=== PATIENT | female | born 1960 | race Caucasian/White ===

== ENCOUNTER 2023-08-18 07:15 | Day surgery (SDC) | payer OTHER, SELFPAY ==
[2023-08-18] VITALS (15 sets, daily range): BP systolic 83–101; BP diastolic 33–82; BMI 25.5
[2023-08-18 07:37] LABS: Hematocrit 40.5 % (37.0-47.0); Hemoglobin 13.2 g/dL (12.0-16.0); Mean Corp Hgb Conc. 32.6 g/dL (33.0-37.0); Mean Platelet Volume 11.1 fL (7.4-10.4); Platelet Count 266 10^3/uL (130-400); Red Blood Cell Count 4.55 10^6/uL (4.20-5.40); Red Cell Dist. Width 14.2 % (11.5-14.5); White Blood Cell Count 7.1 10^3/uL (4.8-10.8)
[2023-08-18 07:41] LABS: Blood Urea Nitrogen 22 mg/dl (7-17); Calcium 10.6 mg/dl (8.4-10.2); Carbon Dioxide 30 mmol/L (22-30); Chloride 101 mmol/L (98-107); Glucose 87 mg/dl (70-99); Potassium 4.4 mmol/L (3.5-5.1); Sodium 139 mmol/L (135-145); eGFR > 60.00
[2023-08-18] MEDS: NSS 190 ML IV (08:41)
[2023-08-18] MEDS: LOW STRENGTH ASPIRIN 324 MG PO (08:42)
[2023-08-18] MEDS: NSS 1000 IV (11:43)
--- NOTE | 2023-08-18 15:05 | ITS.CL.ANGIO ---
On Site Manager - Angioplasty
Angioplasty
Procedure Report:
LEFT HEART CATHETERIZATION
Date of Procedure: August 18, 2023
Procedures performed:
1: Coronary angiography
2: Left ventricular hemodynamic assessment
3: Percutaneous coronary intervention of the left anterior descending artery with placement of a 2.5 x 12 mm Xience drug-eluting stent
4: Percutaneous coronary intervention of the distal right coronary artery with placement of a 2.75 x 28 mm Xience drug-eluting stent postdilated to high-pressure with a 3.0 mm diameter noncompliant balloon
5: Percutaneous coronary intervention of the mid right coronary artery with 2 overlapping stents (3.0 x 28 mm Xience distally overlapping with a 3.25 x 28 mm Xience proximally) postdilated distally with a 3.0 mm balloon and proximally with a 3.5 mm
noncompliant balloon at high pressure
Primary Care Physician: Dr. Bear Ames
Primary Bakery Worker: Myself
INDICATION: The patient is a 62-year-old woman with a past medical history significant for an ischemic cardiomyopathy status post extensive LAD stenting in 2018 in the setting of a late presentation STEMI with known severe diffuse residual
obstructive coronary disease not amenable to surgery or PCI at that time, status post ICD placement, persistent atrial fibrillation on Eliquis, rheumatoid arthritis, and spinal stenosis who is referred for coronary angiography. She has no typical
angina but is fairly limited due to her orthopedic and rheumatologic issues. Her ejection fraction is dropping with serial echoes from as high as 40 to 45% in 2021 now 25 to 30% on May 19. Despite this she has not had decompensated congestive
heart failure. She is on excellent medical therapy. [facility].
ACCESS: The patient was prepped and draped in usual sterile fashion. A 6 Czech sheath was placed in the right common femoral artery using the Seldinger over the wire technique. Attempts to cannulate the right radial artery were unsuccessful
despite ultrasound guidance.
HEMODYNAMIC FINDINGS (mmHg):
LV(s/d,EDP): 88/15, 17
Ao(s/d,m): 88/51, 66
ANGIOGRAPHIC FINDINGS:
Single-plane Left Ventriculography in DE JESUS Projection: Not done.
Coronary Angiography:
Dominance: Right
Left Main: Medium caliber with mild luminal irregularity.
Left Anterior Descending: The left anterior descending artery is a medium caliber vessel that gives rise to several small caliber diagonal branches. The first diagonal branch is proximally occluded and fills distally via left to left collaterals.
The second diagonal branch is jailed by the widely patent mid LAD stent and has severe 90% complex proximal disease with AUDRA-3 distal flow. The third and fourth diagonal branches are widely patent. The mid/distal overlapping stents are widely
patent with a focal area of 70% in-stent restenosis at the most distal stent. The apical LAD has distal smooth 80% stenosis with normal flow. The apical LAD provides collaterals to what appears to be a small caliber but long high OM or ramus
branch. This was not visualized during her index OR procedure in 2018.
Left Circumflex: The left circumflex is a relatively small nondominant system that appears to give rise to only 2 small obtuse marginal branches. This vascular distribution fills much better on this study than it did in 2018 when she was on
pressors and in borderline shock. The first obtuse marginal branch appears to have a very high takeoff and is proximally occluded and fills via apical LAD collaterals. The origin of this vessel is unclear with flush occlusion. There are 2 distal
OM's present that were noted on prior angiography in 2018. The first obtuse marginal branch is occluded in the midportion of the distal vessels fill via left to left collaterals. Again this was not appreciated in 2018 when the vessels were not as
well filled.
Right Coronary: The right coronary artery is a medium to large caliber vessel that was previously occluded in the midportion in 2018. There is now evidence of antegrade flow through a 90% long lesion which may be a bridging collateral. The distal
vessel has competitive flow from left to right collaterals. The distal right coronary artery has a smooth 80% stenosis before the bifurcation. The distal vessels are not well-visualized due to competitive flow from the left.
Percutaneous Coronary Intervention (PCI): In light of her dropping ejection fraction and severe diffuse small vessel disease without surgical options, I felt that I should revascularize what ever I could safely treat. I chose to focus on the focal
in-stent restenotic lesion in the LAD first. The patient was pretreated with aspirin. Unfractionated heparin was given. A loading dose of clopidogrel 600 mg was given on the table at the end of the procedure. A 6 Czech XB 3.0 guiding catheter
was used to engage the left main. Hi-Torque floppy wire was easily advanced down the LAD. Primary stenting with a 2.5 x 12 mm Xience drug-eluting stent was performed. The stent was postdilated with a 2.5 mm diameter noncompliant balloon at high
pressure. Care was taken to stay within the stented margins.
FINAL RESULT: 0% in-stent residual stenosis with an excellent angiographic result AUDRA-3 flow in all distal vessels.
Percutaneous coronary invention of the right coronary artery: I then turned my attention to the right coronary artery. A 6 Czech AL 0.75 guide was used to engage. Hi-Torque floppy wire was easily advanced across both high-grade lesions into the
distal vessel. A 2.0 x 20 mm balloon was used to restore antegrade flow. Next a 2.75 x 28 mm Xience drug-eluting stent was deployed at the distal lesion. Next a 3.0 x 28 mm Xience drug-eluting stent was deployed at the more proximal lesion. A
second overlapping 3.25 x 28 mm Xience drug-eluting stent was then placed more proximally. The distal stent was postdilated with a 3.0 mm diameter noncompliant balloon and distal to proximal fashion taking care to stay within the stented margins.
The more distal mid RCA stent was postdilated at high pressure with a 3.0 mm diameter noncompliant balloon. The overlap and proximal stent was postdilated with a 3.5 mm diameter noncompliant balloon at high pressure.
FINAL RESULT: 0% in-stent residual stenosis with an excellent angiographic result. The right coronary artery gives rise to a medium caliber posterior descending artery and posterior left ventricular branch system. There is smooth 30% proximal
disease in the posterior descending artery. All vessels have AUDRA-3 flow.
Fluoroscopy Time (min): 18
Radiation Dose (mGy): 997
DAP (Gy.cm2): 57
Closure device: 6 Czech Angio-Seal to right common femoral artery. No acute complications.
Complications: None.
ASSESSMENT:
1: Successful PCI of the left anterior descending artery and right coronary artery with placement of drug-eluting stents as described above.
2: Elevated left ventricular filling pressures.
3: Residual severe small vessel disease in the diagonal branches and entire distal circumflex system. This is not amenable to surgical or percutaneous revascularization. This is unchanged from prior angiography and actually much better visualized
today than in 2018 when she was very sick and on vasopressors.
CONCLUSIONS and RECOMMENDATIONS:
1: Routine post PCI medical therapy and monitoring. Will plan to give aspirin and clopidogrel for a week and then stop aspirin and continue Eliquis 5 mg twice daily with clopidogrel 75 mg daily after that.
2: Continue aggressive medical therapy for a ischemic cardiomyopathy with close clinical follow-up.
Stephen Peoples M.D.
Copy to: Dr. Bear Ames
[2023-08-18 15:31] LABS: ACT-LR - POC > 397 Seconds (116-155)
[2023-08-18 15:31] LABS: ACT-LR - POC > 397 Seconds (116-155)
[2023-08-18 15:31] LABS: ACT-LR - POC > 397 Seconds (116-155)
--- NOTE | 2023-08-18 16:08 | PTCARENOTE ---
Received pt post cath, via stretcher. VSS. Right radial site w/ tegadern clean and intact. Right groin site w/ tegadern and 2x2 gauze intact. Will monitor.
--- NOTE | 2023-08-18 16:08 | CM ---
Chart reviewed. Patient is independent of ADLS, lives with her and son in a [address], [facility], ambulates with a SPC. Plan is for the patient to return home. CM to follow
[2023-08-18] MEDS: LASIX 20 MG PO (18:06)
[2023-08-18] MEDS: LIPITOR 80 MG PO (18:07)
[2023-08-18] MEDS: TOPROL XL 25 MG PO (18:07)
--- NOTE | 2023-08-18 18:12 | PTCARENOTE ---
Pt notified RN of left peripheral eye 'flickering'. Pt states that this symptom lasted for about 30 min. Pt notified the RN after this symptom resolved. Pt sitting oob and eating dinner at the time. Pt denied any other symptoms. VSS. Will monitor.
[2023-08-18] MEDS: ENTRESTO 24 MG/26 MG 1 TAB PO (22:18)
[2023-08-19 04:04] VITALS: BP 90/62
[2023-08-19 04:19] LABS: Hematocrit 35.8 % (37.0-47.0); Hemoglobin 11.8 g/dL (12.0-16.0); Mean Corpuscular Hgb 29.5 pg (27.0-31.0); Mean Corpuscular Volume 89.5 fL (81.0-99.0); Mean Platelet Volume 10.7 fL (7.4-10.4); Platelet Count 209 10^3/uL (130-400); White Blood Cell Count 5.7 10^3/uL (4.8-10.8)
[2023-08-19 04:36] VITALS: BMI 25.5
[2023-08-19 05:04] LABS: Blood Urea Nitrogen 21 mg/dl (7-17); Carbon Dioxide 22 mmol/L (22-30); Chloride 106 mmol/L (98-107); Estimated Creatinine Clearance 64 ml/min; Glucose 88 mg/dl (70-99); HDL Cholesterol 52 mg/dl; LDL Cholesterol, Calculated 23 mg/dl; Sodium 136 mmol/L (135-145); Total Cholesterol 89 mg/dl (50-199); Triglyceride 74 mg/dl (10-149); Very Low Density Lipoprotein 14 mg/dl (0-30); eGFR > 60.00
[2023-08-19 07:05] VITALS: BP 106/66
[2023-08-19] MEDS: PROTONIX 40 MG PO (08:23)
[2023-08-19] MEDS: PLAVIX 75 MG PO (08:24)
[2023-08-19] MEDS: ZETIA 10 MG PO (08:24)
[2023-08-19] MEDS: ENTRESTO 24 MG/26 MG 1 TAB PO (08:24)
[2023-08-19] MEDS: JARDIANCE 10 MG PO (08:24)
--- NOTE | 2023-08-19 08:51 | W.PN.CARDCBS ---
Addendum entered and electronically signed by Diane Giang DO 08/19/23 12:19:
I saw and examined the patient.
The Plate Printer's note was reviewed and I agree with the note.
Comment: Patient seen and examined with [facility] nurse practitioner. Patient is feeling well and denies chest pain or pressure, shortness of breath or lightheadedness. Ambulating around room without difficulty.
General: No acute distress, AAOX3
Heart: Regular, Negative S3 positive S1/S2; no murmur. + device
Lungs: CTA b/l, negative wheezes/rales/rhonchi
Abd: Positive BS, NT/ND, neg rebound/rigidity/guarding
Ext: No edema. Right groin site intact without hematoma or significant ecchymosis. no bruit
Neuro: nonfocal
Plan:
Patient is feeling well following cardiac catheterization and anxious to return home
Telemetry sinus rhythm/sinus bradycardia without arrhythmias
DAPT ASA/Plavix for 1 week then stop ASA
Will hold Eliquis until Wednesday evening, after groin check with ATC
LDL 23 continue atorvastatin 80mg, zetia 10
HF continue Toprol, Jardiance, spironolactone, Entresto
Will need f/u ECHO in 3-6 mo after revascularization to reassess EF
cardiac rehab c/s
activity restrictions reviewed
groin check apt wed am
f/u Dr. Peoples 2-4 weeks
home today
Original Note:
Today's Communication / Plan
-
post MV PCI
triples for 1 week, resume Eliquis wednesday gisela
continue GDMT for HF
Impression / Plan
-
Primary Care Physician: Dr. Bear Ames
Primary Exercise Planner: Livan Peoples MD
62-year-old woman with a past medical history significant for an ischemic cardiomyopathy status post extensive LAD stenting in 2018 in the setting of a late presentation STEMI with known severe diffuse residual obstructive coronary disease not
amenable to surgery or PCI at that time, status post ICD placement, persistent atrial fibrillation on Eliquis, rheumatoid arthritis, and spinal stenosis who is referred for coronary angiography. She has no typical angina but is fairly limited due
to her orthopedic and rheumatologic issues. Her ejection fraction is dropping with serial echoes from as high as 40 to 45% in 2021 now 25 to 30% on May 19. Despite this she has not had decompensated congestive heart failure. She is on
excellent medical therapy. Eliquis was held for the procedure.
Impression:
CAD/TX prior PCI LAD 2017
Ischemic cardiomyopahty EF 25-30%
post PCI LAD x 1, RCA x 2 MIREYA 08/18/23
prior ICD placement
HTN
HLD
persistent Afib on Eliquis
RA
Procedures performed:
1: Coronary angiography
2: Left ventricular hemodynamic assessment
3: Percutaneous coronary intervention of the left anterior descending artery with placement of a 2.5 x 12 mm Xience drug-eluting stent
4: Percutaneous coronary intervention of the distal right coronary artery with placement of a 2.75 x 28 mm Xience drug-eluting stent postdilated to high-pressure with a 3.0 mm diameter noncompliant balloon
5: Percutaneous coronary intervention of the mid right coronary artery with 2 overlapping stents (3.0 x 28 mm Xience distally overlapping with a 3.25 x 28 mm Xience proximally) postdilated distally with a 3.0 mm balloon and proximally with a 3.5 mm
noncompliant balloon at high pressure
Plan:
post PCI no cp, feels good
tele SB, groin stable
DAPT ASA/Plavix for 1 week then stop ASA
Will hold Eliquis until Wednesday evening, after groin check
LDL 23 continue atorvastatin 80mg, zetia 10
HF continue Toprol, Jardiance, spironolactone, Entresto
Will need f/u ECHO in 3-6 mo after revascularization to reassess EF
cardiac rehab c/s
activity restrictions reviewed
groin check apt fri am
f/u Dr. Peoples 2-4 weeks
home today
Progress Note - Exercise Planner
Subjective
Date of Service: August 19, 2023
no cp, sob
Objective
Labs:
08/19/23 04:03
08/19/23 04:03
Labs
Hgb 11.8 g/dL (12.0-16.0) L 08/19/23 04:03
Hct 35.8 % (37.0-47.0) L 08/19/23 04:03
Plt Count 209 10^3/uL (130-400) D 08/19/23 04:03
Sodium 136 mmol/L (135-145) 08/19/23 04:03
Potassium 4.0 mmol/L (3.5-5.1) 08/19/23 04:03
BUN 21 mg/dl (7-17) H 08/19/23 04:03
Creatinine 0.7 mg/dL (0.6-1.0) 08/19/23 04:03
Glucose 88 mg/dl (70-99) 08/19/23 04:03
Vital Signs and I&O:
Vital Signs
Temp Pulse Resp BP Pulse Ox
97.6 F 85 20 106/66 91
08/19/23 07:03 08/19/23 07:30 08/19/23 07:03 08/19/23 07:05 08/19/23 07:05
Vital Signs
Temp Pulse Resp BP Pulse Ox
97.6 F 85 20 106/66 91
08/19/23 07:03 08/19/23 07:30 08/19/23 07:03 08/19/23 07:05 08/19/23 07:05
Intake & Output
08/17/23 08/18/23 08/19/23 08/20/23
06:59 06:59 06:59 06:59
Intake Total 1330 / 1330
Balance 1329
Physical Exam
Physical Exam
NAD, AOx3
S1, S2, RRR
CTAB, non labored, no wheeze
SNTND Bsx4
R fem site c/d/i no HT, soft
[2023-08-19] MEDS: ALDACTONE 12.5 MG PO (10:03)
--- NOTE | 2023-08-19 11:16 | PTCARENOTE ---
Patient seen this morning by cardiology and is ok for discharge. Seen by cardiac rehab prior to discharge. Dressing right groin is dry and intact, tegaderm in place right wrist. Patient denies any chest pain or sob. Reviewed discharge instructions
with the patient and she states her understanding. Patient discharged home with her .
--- NOTE | 2023-08-19 13:37 | W.DS.TRANS ---
DC Summary - Locks Tender
-
Discharge Instructions:
Sleep Apnea Risk Low
Discharge Diagnosis/Procedures Angioplasty with stent to LAD x1 and RCA x3
Diet Low Cholesterol,2 Gram Sodium,Restrict fluids to
48 oz
Driving Restrictions No driving for 24 hours
Other Services Cardiac Rehab
Specialty Instructions Weigh Daily
Instructions:
Stand-Alone Forms: DC Instructions- Cath/EP Lab
Changes to Home Medications: Yes
Discharge Medications:
DC Medications w/original date entered in [employer]
apixaban 5 mg tablet (Eliquis) 5 mg PO BID 08/18/23
atorvastatin 80 mg tablet 80 mg PO QPM 08/18/23
empagliflozin 10 mg tablet (Jardiance) 10 mg PO DAILY 08/18/23
ezetimibe 10 mg tablet 10 mg PO DAILY 08/18/23
fexofenadine 60 mg tablet 120 mg PO DAILY 08/18/23
furosemide 20 mg tablet (Lasix) 20 mg PO QPM 08/18/23
leflunomide 10 mg tablet 10 mg PO DAILY 08/18/23
metoprolol succinate 25 mg capsule sprinkle, ext. release 24 hr 25 mg PO QPM 08/18/23
pantoprazole 40 mg tablet,delayed release 40 mg PO DAILY 08/18/23
sacubitril 24 mg-valsartan 26 mg tablet (Entresto) 1 tab PO BID 08/18/23
spironolactone 25 mg tablet 12.5 mg PO DAILY 08/18/23
teriparatide 20 mcg/dose (600 mcg/2.4 mL) subcutaneous pen injector 20 mcg SC DAILY 08/18/23
aspirin 81 mg chewable tablet 81 mg PO DAILY #1 tab 08/19/23
clopidogrel 75 mg tablet 75 mg PO DAILY #90 tabs 08/19/23
Home Medication Changes
new to plavix, ASA for 1 week
Pending Results: No
== END 2023-08-19 11:26 | disposition home or self-care (01) ==
LOC: CATH 07:15
PROVIDERS: Nurse Practitioner Adult Health; ATTENDING PHYSICIAN Internal Medicine Interventional Cardiology; FAMILY PHYSICIAN Family Medicine; PRIMARYCARE PHYSICIAN Family Medicine
DX: I25.10 Atherosclerotic heart disease of native coronary artery without angina pectoris (principal); Z95.5 Presence of coronary angioplasty implant and graft; Z95.810 Presence of automatic (implantable) cardiac defibrillator; I11.0 Hypertensive heart disease with heart failure; E78.5 Hyperlipidemia, unspecified; Z79.01 Long term (current) use of anticoagulants; I48.19 Other persistent atrial fibrillation; M06.9 Rheumatoid arthritis, unspecified; I25.5 Ischemic cardiomyopathy; I25.2 Old myocardial infarction; M48.00 Spinal stenosis, site unspecified; I73.9 Peripheral vascular disease, unspecified; Z79.82 Long term (current) use of aspirin; Z79.84 Long term (current) use of oral hypoglycemic drugs; Z79.899 Other long term (current) drug therapy
CPT/HCPCS: C9600; 80048; 80061; 85027; 85347; 93005; 93458; C1725; C1760; C1769; C1874; C1887; C1894; C9601; J0153; Q9967

== ENCOUNTER 2024-09-26 06:02 | Inpatient (IN) | payer OTHER, MEDICARE, SELFPAY ==
[2024-09-13 11:31] LABS: Hematocrit 41.4 % (37.0-47.0); Hemoglobin 13.2 g/dL (12.0-16.0); Mean Corp Hgb Conc. 31.9 g/dL (33.0-37.0); Mean Corpuscular Volume 94.3 fL (81.0-99.0); Platelet Count 295 10^3/uL (130-400); Red Cell Dist. Width 14.0 % (11.5-14.5)
[2024-09-13 11:49] LABS: Glycohemoglobin (HgbA1c) 5.7 % (4.0-5.6)
[2024-09-13 11:56] LABS: ALT (SGPT) 21 U/L (0-35); AST (SGOT) 40 U/L (14-36); Albumin 4.1 g/dl (3.5-5.0); Alkaline Phosphatase 65 U/L (38-126); Blood Urea Nitrogen 23 mg/dl (7-17); Calcium 9.9 mg/dl (8.4-10.2); Carbon Dioxide 29 mmol/L (22-30); Chloride 105 mmol/L (98-107); Glucose 97 mg/dl (70-99); Potassium 4.4 mmol/L (3.5-5.1); Sodium 140 mmol/L (135-145); Total Protein 6.7 g/dl (6.3-8.2); eGFR > 60.00
[2024-09-13 14:01] VITALS: BMI 24.0
[2024-09-13 14:29] VITALS: BMI 24.0
--- NOTE | 2024-09-14 12:28 | CM ---
CM reviewed medical records. CM spoke with patient via live telephone. Patient confirmed demographics. Patient lives independently with . Patient does not have a history of VN, SNF. Patient is 'working on' getting her required DME. Patient
has an outpatient PT facility arranged with [facility] in [place].
Patient is active with her PCP. Patient has medication coverage.
Patient had questions regarding her labs and wanted to have the ortho PA call her with feedback. CM TT'd ortho PA with patient's questions.
PLAN: Home with outpatient PT.
[2024-09-26] VITALS (18 sets, daily range): BP systolic 80–102; BP diastolic 42–63; PULSE 60; O2SAT 95–97; BMI 24.0; BMI 24.8
[2024-09-26] MEDS: NORMOSOL-R/PLASMALYTE-A 1000 IV ×2 (06:29→12:50)
[2024-09-26] MEDS: TYLENOL 650 MG PO ×3 (06:29→17:26)
[2024-09-26] MEDS: CELEBREX 200 MG PO (06:29)
--- NOTE | 2024-09-26 08:56 | OR.RPT ---
Operative Report
Operative Report
Orthopaedic Surgery Operative Note
DATE OF OPERATION: 09/26/2024
PREOPERATIVE DIAGNOSES: Osteoarthritis, right hip
POSTOPERATIVE DIAGNOSES: Same
OPERATION PERFORMED: Right total hip arthroplasty.
SURGEON: Javier Hastings MD
FLARE MAKER: Bhaskar Mays PA-C who assisted with patient positioning and retraction
ANESTHESIA: Spinal
COMPLICATIONS: None.
ESTIMATED BLOOD LOSS: 50 mL.
DRAINS: None
SPECIMEN: None
FINDINGS: Advanced articular cartilage wear on the femoral head and acetabulum.
IMPLANTS:
Biomet G7 Acetabular Shell, cluster hole, size 54
Biomet G7 Highly Crosslinked PE Liner, neutral
Moira Acetabular bone screw, 6.5mm x2
Moira M/L Taper femoral stem, size 10 with reduced neck length and standard offset
Biolox Ceramic Head, size 40mm -3.5
INDICATIONS: The patient presented to my office with debilitating right hip pain due to osteoarthritis. We reviewed the natural history of this problem, as well as the risks, benefits, and alternatives of various treatment options. The patient
exhausted all nonoperative treatment options and wished to proceed with hip replacement surgery. The patient understood the risks which included, but were not limited to, bleeding, infection, failure to relieve pain, more pain than preop, damage to
blood vessels and nerves, need for reoperation, mechanical failure of the implants, wound healing problems, stiffness, instability, blood clot, pulmonary embolism, myocardial infarction, pneumonia, arrhythmia, CVA, and . The patient accepted
these risks and wished to proceed. All questions were answered, and informed consent was obtained.
PROCEDURE IN DETAIL: The patient was identified in the preoperative holding area. The right hip was identified as the operative site. The patient was taken in the operating room and transferred to the operative table. Spinal anesthesia was
performed. IV antibiotics and tranexamic acid were administered. The patient was placed in the lateral position with Stulberg hip positioners. Axillary roll was placed. The down leg was well padded. All bony prominences were well padded. The
operative limb was prepped and draped in the usual sterile fashion.
Time out was performed. A posterolateral approach to the hip was used. The skin incision was centered over the greater trochanter. This was taken down sharply through subcutaneous tissues. Meticulous hemostasis was achieved throughout the case with
electrocautery. We split the fascia leif in line with skin incision. I split the gluteus emerson bluntly. We cauterized all crossing vessels as we split it. I palpated the sciatic nerve and made sure it was well posterior in the operative field. It
was protected throughout the case.
I performed a partial bursectomy to identify the short external rotators. The gluteus medius and minimus were identified and retracted anteriorly. I incised the piriformis tendon and conjoint tendon at their insertions. These were tagged for later
repair. I then performed a trapezoidal capsulotomy. The edges were tagged for later repair. I referenced the cut edge of the capsular flap to 2 fixed points on the greater trochanter for assistance with recreation of limb length and offset. I then
dislocated the hip posteriorly. I performed a femoral neck osteotomy approximately 10 mm above the lesser trochanter, as per preoperative templating. The femoral head measured 50 mm in outer diameter. The distance between neck cut and the center of
femoral head was 30. I placed a curve hohmann retractor over the anterior lip of the acetabulum between the labrum and the anterior hip capsule. A second retractor was placed inferiorly just distal to the transverse acetabular ligament.
Circumferential view of the acetabulum was achieved. I incised the labrum and pulvinar with electrocautery. I started with a 49 mm reamer and reamed down to the medial wall. I then sequentially reamed up to a 53mm reamer. This gave a nice bed of
bleeding bone with excellent column support anteriorly and posteriorly. There was some superior migration of the head in the acetabulum leaving a small shelf of pseudoacetabulum. I impacted the acetabular shell in approximately 40 degrees of
abduction and 20 degrees of anteversion. I matched the anteversion of the transverse acetabular ligament. I also made sure that the anterior rim of the socket was not proud of the anterior wall to minimize the chance of iliopsoas tendinitis. I
confirmed the cup was well-seated. I placed 2 ileal screws in the posterior superior quadrant. I then impacted a neutral liner and confirmed it was well seated with the locking mechanism.
On the femoral side, I use a box osteotome to open the proximal starting point. I found the canal with a Charnley awl and a lateralizing reamer. I then used the Moira M/L taper broaches sequentially to prepare the femoral canal. The size 10 came to
a stop at the desired level and had excellent axial and rotational stability. We trialed with a trial ball head. The hip was taken through a complete range of motion. It was noted to be stable in extension without impingement. It was stable in the
position of sleep and in flexion with internal rotation. The limb length and offset were checked compared to the capsular flap and was appropriate. The measured length between the neck cut and center of the trial femoral head was 35mm.
I removed the trials. I impacted the femoral implant to match the confederated goshute version. It had excellent axial and rotational stability. Trial ball head was placed, and I reduced the hip and took the hip through range of motion. There was no impingement
in external rotation and extension. Position of sleep was stable. At 90 degrees of flexion and slight adduction, the hip could be internally rotated to 90 degrees with no subluxation. I palpated the sciatic nerve, which was tension free and
unharmed. Based on our capsular flap measurement, we had restored the offset and leg length. The trial ball head was removed, and the final ball head was impacted onto a clean and dry Navarro taper. The hip was reduced.
A dilute betadine soak was performed for approximately 3 minutes, and then the hip was copiously irrigated. I repaired the capsule, piraformis, and conjoint tendon with #2 Ethibond to drill holes in the greater trochanter. Local anesthetic was
injected. The fascia leif was closed with #1 PDS in running fashion. The subcutaneous tissues were closed with 2-0 PDS in running fashion. The skin was reapproximated with 3-0 Monocryl subcuticular suture. I placed a Prineo dressing followed by a
Mepilex Ag dressing. The patient awoke from anesthesia without difficulty. Sponge and instrument counts were correct x2 at the end of the case.
I was present and participated in the entire procedure. The patient was sent to the recovery room in stable condition.
Tanmay Hastings MD
[2024-09-26] MEDS: TUMS CHEWABLE TABLET 400 MG PO (09:37)
--- NOTE | 2024-09-26 10:18 | W.PN.UPDATE ---
Update Note
Progress Note Update
R hip OA s/p R TD w/ Dr Hastings 09/26/24
DVT prophylaxis - Eliquis at modified dosing and b/l venous foot pumps
- Home dosing of Eliquis to be resumed POD 3 if hemodynamically stable
Hypertension with recent hypotension - + parameters - monitor BP
- Gentle IVF to prevent significant hypotension
- Midodrine for SBP <125
- Minimize opioids as able
- TEDS
CAD/STEMI, status post PCI with mid-distal LAD stents, 2017, and PCI with LAD and mid to distal RCA stents 07/2023
PAF, pharmacological therapy with Metoprolol Succinate, oral anticoagulation with Eliquis
Ventricular tachycardia, status post ICD implant 2017
- Monitor on tele
- Continue BB, ASA
- Eliquis as stated above
Ischemic cardiomyopathy, reduced ejection fraction - gentle IVF
- Resume home meds but w/ added SBP parameters to avoid significant hypotension
- Daily weight, I&Os
- Low sodium diet
GERD - continue PPI therapy
Peripheral neuropathy of right lower extremity - add Gabapentin
- Consider Lyrica if Gabapentin ineffective
Mildly elevated transaminase - reduce max dose of Tylenol daily
HLD
Multilevel degenerative disc disease
Lumbar stenosis
Scoliosis
Rheumatoid arthritis, on Leflunomide
Thyroid nodule
Basal cell carcinoma, back, status post excision
Osteoporosis
Prediabetes, A1c 5.7
[2024-09-26] MEDS: ULTRAM 50 MG PO (11:48)
--- NOTE | 2024-09-26 13:09 | PTCARENOTE ---
Tubing down Jardiance and Leflunomide to pharmacy to be ordered and tagged to administer if appropriate. [facility] med list is completed. Surgeon and pharmacist made aware through tiger text
[2024-09-26] MEDS: NEURONTIN PO ×2 (13:15→15:25)
[2024-09-26] MEDS: PROTONIX 40 MG PO (13:41)
[2024-09-26] MEDS: NON-FORMULARY ITEM PO (13:43)
[2024-09-26] MEDS: ANCEF 5 IV ×2 (15:26→23:00)
[2024-09-26] MEDS: LIPITOR 80 MG PO (17:30)
[2024-09-26] MEDS: ZETIA 10 MG PO (17:31)
[2024-09-26] MEDS: SENOKOT 17.2 MG PO (19:12)
[2024-09-26] MEDS: DECADRON 4 MG PO (19:13)
[2024-09-26] MEDS: COLACE 100 MG PO (19:13)
[2024-09-26] MEDS: ELIQUIS 2.5 MG PO (19:13)
[2024-09-26] MEDS: BACTROBAN 2% OINTMENT 1 APPLIC NASAL (20:59)
[2024-09-26] MEDS: NEURONTIN 200 MG PO (21:00)
[2024-09-26] MEDS: ROXICODONE 5 MG PO (21:39)
[2024-09-26] MEDS: TYLENOL PO (23:00)
[2024-09-27] MEDS: ROXICODONE 10 MG PO (01:53)
[2024-09-27 03:52] VITALS: BP 89/54
[2024-09-27 03:53] VITALS: BMI 24.9
[2024-09-27] MEDS: TYLENOL PO (05:26)
[2024-09-27 06:00] VITALS: BMI 24.9
[2024-09-27 07:35] VITALS: BP 102/54
[2024-09-27] MEDS: BACTROBAN 2% OINTMENT 1 APPLIC NASAL (08:24)
[2024-09-27] MEDS: DECADRON 4 MG PO (08:25)
[2024-09-27] MEDS: NEURONTIN 200 MG PO (08:25)
[2024-09-27] MEDS: COLACE 100 MG PO (08:26)
[2024-09-27] MEDS: PROTONIX 40 MG PO (08:26)
[2024-09-27] MEDS: ELIQUIS 2.5 MG PO (08:26)
[2024-09-27] MEDS: VITAMIN D3 (cholecalciferol) 100 MCG PO (08:26)
[2024-09-27] MEDS: SENOKOT 17.2 MG PO (08:26)
[2024-09-27] MEDS: NON-FORMULARY ITEM 20 MG PO (08:27)
[2024-09-27] MEDS: NON-FORMULARY ITEM 10 MG PO (08:28)
--- NOTE | 2024-09-27 09:21 | W.PN.ORTHO ---
Today's Communication / Plan
-
Await PT and OT recs.
D/c later today if remaining clinically stable.
Assessment
.
Distal Motor Intact: Yes
Dressing:
Clean, dry and intact.
Assessment:
R hip OA s/p Phuc APPIAH w/ Dr Hastings 09/26/24
DVT prophylaxis - Eliquis at modified dosing and b/l venous foot pumps
- Home dosing of Eliquis to be resumed POD 3 since hemodynamically stable
Hypertension with recent hypotension - + parameters - BPs overall stable for patient
- s/p gentle IVF to prevent significant hypotension
- Midodrine for SBP <125 -> d/c as of this morning.
- Minimize opioids as able
- TEDS
CAD/STEMI, status post PCI with mid-distal LAD stents, 2017, and PCI with LAD and mid to distal RCA stents 07/2023
PAF, pharmacological therapy with Metoprolol Succinate, oral anticoagulation with Eliquis
Ventricular tachycardia, status post ICD implant 2017
- Rhythm stable on tele
- Continue BB, ASA
- Eliquis as stated above
Ischemic cardiomyopathy, reduced ejection fraction - s/p gentle IVF
- Resumed home meds but w/ added SBP parameters to avoid significant hypotension
- Daily weight, I&Os stable
- Low sodium diet
GERD - continue PPI therapy
Peripheral neuropathy of right lower extremity - added Gabapentin -> will d/c w/ HS dose
- Consider Lyrica if Gabapentin ineffective
Mildly elevated transaminase - reduced max dose of Tylenol daily
HLD
Multilevel degenerative disc disease
Lumbar stenosis
Scoliosis
Rheumatoid arthritis, on Leflunomide
Thyroid nodule
Basal cell carcinoma, back, status post excision
Osteoporosis
Prediabetes, A1c 5.7
Plan
.
Surgery / Date: R hip OA s/p Phuc APPIAH w/ Dr Hastings 09/26/24
DVT Prophylaxis: Other (Eliquis)
Activity:
Out of bed.
PT/OT
Discharge Plan: Home w/ Outpatient PT
Subjective
.
.:
Patient resting comfortably in her chair.
R hip pain overall well controlled w/ minimal pain meds.
Denies any acute complaints.
Eager for potential d/c today.
Vital Signs and Labs
.
Vital Signs and Labs:
Lab Results
09/13/24 10:39
09/13/24 10:39
Temp Pulse Resp BP Pulse Ox
97.4 F 64 14 102/54 95
09/27/24 07:35 09/27/24 07:35 09/27/24 07:35 09/27/24 08:25 09/27/24 07:35
Physical Exam
-
HEENT: No pallor, cyanosis, or jaundice. Throat clear.
NECK: Supple. No JVD.
RESPIRATORY: Lungs clear to auscultation.
CVS: S1, S2 normal. RRR.�
ABDOMEN: Soft, non-tender. No distension.
EXTREMITIES: Strength equal, no calf pain with palpation/dorsiflexion. Calves soft.
WEIGHT AND BALANCE CONTROL AGENT: AOx3. No focal deficits. eyelet machine operator grossly intact
[2024-09-27 09:29] VITALS: BP 107/62
--- NOTE | 2024-09-27 09:38 | W.DS.TRANS ---
DC Summary - Sales Professional
-
Discharge Instructions:
Sleep Apnea Risk Low
Discharge Diagnosis/Procedures R hip OA s/p R TD w/ Dr Hastings 09/26/24
Diet Low Sodium
Additional Diets Adequate hydration, minimize opioids, and wear
TEDs stockings to prevent low blood pressure/
dizziness.
Activity As tolerated,With Walker
Driving Restrictions Not until seen by your Dr
Bathing Restrictions OK to Shower
Other Services PT
Wound Care Leave dressing on until seen by surgeon's office
for follow-up in 2 weeks
Specialty Instructions Weigh Daily
Instructions:
Stand-Alone Forms: Total Hip/Knee Replacement D/C
Changes to Home Medications: Yes
Discharge Medications:
DC Medications w/original date entered in [facility]
apixaban 5 mg tablet (Eliquis) 5 mg PO BID Blood Clot Prevention/Tx 08/18/23
Held on 09/27/24. Instructions: Resume on 09/29/24.
atorvastatin 80 mg tablet 80 mg PO QPM High Cholesterol 08/18/23
ezetimibe 10 mg tablet 10 mg PO DAILY High Cholesterol 08/18/23
fexofenadine 60 mg tablet 120 mg PO DAILY Allergies 08/18/23
leflunomide 10 mg tablet 20 mg PO DAILY Arthritis 08/18/23
metoprolol succinate 25 mg capsule sprinkle, ext. release 24 hr 25 mg PO QPM Blood Pressure 08/18/23
pantoprazole 40 mg tablet,delayed release 40 mg PO DAILY Gastrointestinal Issue 08/18/23
[place] 3 1 dose PO DAILY Supplement 09/12/24
Held on 09/27/24. Instructions: Resume on 10/03/24.
calcium carbonate 500 mg PO DAILY Gastrointestinal Issue 09/12/24
cholecalciferol (vitamin D3) 100 mcg (4,000 unit) capsule 100 mcg PO DAILY Supplement 09/12/24
multivitamin 1 tab PO DAILY Supplement 09/12/24
mupirocin 2 % topical ointment 1 applic intranasal BID #1 tube 09/13/24
acetaminophen 650 mg tablet,extended release 1,300 mg (2 x 650 mg) PO BID #60 tabs 09/27/24
apixaban 2.5 mg tablet (Eliquis) 2.5 mg PO BID #3 tabs 09/27/24
aspirin 81 mg chewable tablet 81 mg PO DAILY #1 tab 09/27/24
dexamethasone 4 mg tablet 4 mg PO BID Anti-inflammatory #5 tabs 09/27/24
docusate sodium 100 mg capsule 100 mg PO BID #30 caps 09/27/24
empagliflozin 10 mg tablet (Jardiance) 10 mg PO DAILY #0 tabs 09/27/24
furosemide 20 mg tablet (Lasix) 20 mg PO QPM Heart Disease/Condition #1 tab 09/27/24
gabapentin 300 mg capsule 300 mg PO HS neuropathic pain/sleep #10 caps 09/27/24
ondansetron HCl 4 mg tablet 4 mg PO Q6H PRN nausea and vomiting #30 tabs 09/27/24
oxycodone 5 mg tablet 5 - 10 mg (1 - 2 x 5 mg) PO Q6H PRN moderate-severe pain #30 tabs 09/27/24
sacubitril 24 mg-valsartan 26 mg tablet (Entresto) 1 tab PO BID Heart Disease/Condition #1 tab 09/27/24
sennosides 8.6 mg tablet (-aura) 17.2 mg (2 x 8.6 mg) PO BID #30 tabs 09/27/24
spironolactone 25 mg tablet 12.5 mg (1/2 x 25 mg) PO DAILY Blood Pressure #1 tab 09/27/24
Home Medication Changes
acetaminophen 650 mg tablet,extended release 1,300 mg (2 x 650 mg) PO BID #60 tabs 09/27/24
apixaban 2.5 mg tablet (Eliquis) 2.5 mg PO BID #3 tabs 09/27/24 - until POD 3
dexamethasone 4 mg tablet 4 mg PO BID Anti-inflammatory #5 tabs 09/27/24
docusate sodium 100 mg capsule 100 mg PO BID #30 caps 09/27/24
gabapentin 300 mg capsule 300 mg PO HS neuropathic pain/sleep #10 caps 09/27/24
ondansetron HCl 4 mg tablet 4 mg PO Q6H PRN nausea and vomiting #30 tabs 09/27/24
oxycodone 5 mg tablet 5 - 10 mg (1 - 2 x 5 mg) PO Q6H PRN moderate-severe pain #30 tabs 09/27/24
sennosides 8.6 mg tablet (-aura) 17.2 mg (2 x 8.6 mg) PO BID #30 tabs 09/27/24
Pending Results: No
--- NOTE | 2024-09-27 09:52 | CM ---
Reviewed the chart notes and spoke with the patient at the bedside. Patient resides with spouse in a two story home with two steps to enter. Patient has a cane and rolling walker in home. The patient has had [facility] V[facility] in the past, but no SNF. The
patient confirmed her pharmacy of choice is [facility]. Patient will be starting outpatient therapy tomorrow. Patient's spouse to provide transportation home. CM continues to be available to patient/family and is monitoring medical plan for
needs at discharge.
Plan: Discharge to home today.
[2024-09-27 10:37] VITALS: BP 101/60; PULSE 64; O2SAT 99
[2024-09-27 10:49] VITALS: BP 101/55
== END 2024-09-27 11:29 | disposition home or self-care (01) | DRG 470 ==
LOC: 2 SOUTH 06:02
PROVIDERS: ADMITTING PHYSICIAN Orthopaedic Surgery; FAMILY PHYSICIAN Family Medicine; REFERRING PHYSICIAN Internal Medicine Interventional Cardiology
PROC: 0SR903A Replacement of Right Hip Joint with Ceramic Synthetic Substitute, Uncemented, Open Approach (ICD-10-PCS; 2024-09-26)
DX: M16.11 Unilateral primary osteoarthritis, right hip (principal); I10 Essential (primary) hypertension; I25.5 Ischemic cardiomyopathy; K21.9 Gastro-esophageal reflux disease without esophagitis; E78.5 Hyperlipidemia, unspecified
CPT/HCPCS: 36415; 73502; 80053; 83036; 85027; 87070; 97110; 97116; 97162; 97166; 97530; 97535; C1713; C1776